=== PATIENT | male | born 1965 | race Caucasian/White ===

== ENCOUNTER 2017-03-05 08:18 | Inpatient (IN) | payer BC, MEDICAID ==
[~2017-03-05] VITALS: Ht 180.3 cm; Wt 65.8 kg
[~2017-03-05 08:18] MED LIST: ALPR-475 PO; AMOX1TAB12 PO; AMOX1TAB64 PO; DEXA4TAB PO; LIDO30CR TP; METR500T PO; MULT-132 PO; OMEP20TA62 PO; ONDA8TAB12 PO; OXYC20TA42 PO; POTA20TA14 PO; PROC10TA PO; ZOLP10TA5 PO; maalox/diphenh/lido/sucralfate PO
[2017-03-05] MEDS ORDERED: PROPOFOL 100 ML IV ONE (08:58)
[2017-03-05] MEDS ORDERED: PROPOFOL 100 ML IV PRN ×2 (09:00→15:21)
[2017-03-05 09:21] LABS: ABG COLLECTION SITE LEFT BRACHIAL; COLLATERAL CIRCULATION TESTING NORMAL
[2017-03-05 09:27] LABS: BLOOD UREA NITROGEN 15 mg/dL (7-18)
[2017-03-05] MEDS ORDERED: PHENYLEPHRINE 10 MG/ML ONE (09:34)
[2017-03-05] MEDS ORDERED: ONDANSETRON 2MG/ML, 2ML ONE (09:34)
[2017-03-05] MEDS ORDERED: DEXAMETHASONE 4 MG/ML, 1ML ONE (09:34)
[2017-03-05] MEDS ORDERED: ROCURONIUM 10 MG/ML ONE (09:34)
[2017-03-05] MEDS ORDERED: METOCLOPRAMIDE 5 MG/ML, 2ML ONE (09:34)
[2017-03-05] MEDS ORDERED: FENTANYL PF 100 MCG/2ML ONE ×2 (09:57→13:10)
[2017-03-05] MEDS ORDERED: MIDAZOLAM 1 MG/ML, 2ML ONE ×2 (09:57→10:51)
[2017-03-05] MEDS ORDERED: BISACODYL 10 MG SUPP PR PRN ×2 (12:30→15:30)
[2017-03-05] MEDS ORDERED: POLYETHYLENE GLYCOL 17 GM PACKET PO PRN (12:30)
[2017-03-05] MEDS ORDERED: DOCUSATE 100 MG CAPSULE PO PRN (12:30)
[2017-03-05] MEDS: SODIUM CHLORIDE 0.9% 1,000 ML IV SCH ×2 (12:57→22:55)
[2017-03-05] MEDS: FENTANYL PF 100 MCG/2ML IVPush PRN (13:35)
[2017-03-05] MEDS: FENTANYL PF 2,500 MCG in SODIUM CHLORIDE 0.9% 200 ML IV PRN (14:54)
[2017-03-05] MEDS: PROPOFOL 100 ML IV PRN ×2 (14:55→19:31)
[2017-03-05] MEDS ORDERED: SODIUM CHLORIDE 0.9% 1,000ML IVBOLUS ONE ×2 (15:30→23:00)
[2017-03-05] MEDS ORDERED: SENNA/DOCUSATE TABLET NG PRN (15:30)
[2017-03-05] MEDS: ALBUTEROL/IPRATROPIUM 2.5MG/0.5MG, 3 ML INLINE SCH ×3 (15:30→23:15)
[2017-03-05] MEDS ORDERED: LACTULOSE 20 GM/30 ML UDC NG PRN (15:30)
[2017-03-05] MEDS ORDERED: SENNOSIDES 8.8 MG/5 ML ORAL SOL NG PRN (15:30)
[2017-03-05] MEDS ORDERED: PHARMACY MAY ADJ FOR RENAL FX MC SCH (15:30)
[2017-03-05] MEDS ORDERED: FENTANYL PF 100 MCG/2ML IVPush PRN (15:30)
[2017-03-05 15:47] VITALS: BP 85/62
[2017-03-05] MEDS: FAMOTIDINE 20 MG/2 ML IV SCH (16:56)
[2017-03-05] MEDS: RISPERIDONE 1 MG TABLET NG PRN (20:06)
[2017-03-05] MEDS: MIDAZOLAM HCL 50 MG in SODIUM CHLORIDE 0.9% 240 ML IV PRN (20:45)
[2017-03-05] MEDS ORDERED: FAMOTIDINE 20 MG/2 ML IVPush SCH (21:00)
[2017-03-06] MEDS: ALBUTEROL/IPRATROPIUM 2.5MG/0.5MG, 3 ML INLINE SCH ×6 (02:11→21:53)
[2017-03-06] MEDS: FAMOTIDINE 20 MG/2 ML IV SCH ×2 (03:59→18:40)
[2017-03-06 04:00] VITALS: BP 85/45
[2017-03-06 04:24] LABS: ABG COLLECTION SITE ARTERIAL LINE
[2017-03-06 04:36] LABS: ASPARTATE AMINO TRANSFERASE 7 U/L (15-37); BLOOD UREA NITROGEN 15 mg/dL (7-18)
[2017-03-06] MEDS: MIDAZOLAM HCL 50 MG in SODIUM CHLORIDE 0.9% 240 ML IV PRN ×2 (07:38→19:13)
[2017-03-06] MEDS: SODIUM CHLORIDE 0.9% 1,000 ML IV SCH ×2 (10:59→19:20)
[2017-03-06] MEDS ORDERED: EPINEPHRINE 1 MG/ML, 1ML ONE (13:53)
[2017-03-06] MEDS ORDERED: LIDOCAINE 0.5%-EPI 1:200K, 50ML ONE (13:53)
[2017-03-06] MEDS ORDERED: LIDOCAINE/PF 1%, 30ML ONE (13:54)
[2017-03-06] MEDS ORDERED: FENTANYL PF 250 MCG/5ML ONE ×2 (14:06→14:46)
[2017-03-06] MEDS ORDERED: MIDAZOLAM 1 MG/ML, 2ML ONE (14:07)
[2017-03-06] MEDS ORDERED: PROPOFOL 10 MG/ML, 20ML ONE (14:15)
[2017-03-06] MEDS ORDERED: ROCURONIUM 10 MG/ML ONE (14:15)
[2017-03-06] MEDS ORDERED: CEFAZOLIN 1,000 MG ONE (14:15)
[2017-03-06] MEDS: FENTANYL PF 2,500 MCG in SODIUM CHLORIDE 0.9% 200 ML IV PRN (17:24)
[2017-03-06] MEDS: ACETAMINOPHEN 325 MG TABLET PO PRN (19:20)
[2017-03-06] MEDS: AMPICILLIN/SULBACTAM 3 GM in SODIUM CHLORIDE 0.9% 100 ML IV SCH (19:20)
[2017-03-06] MEDS: FENTANYL PF 100 MCG/2ML IVPush PRN (19:55)
[2017-03-07] MEDS: AMPICILLIN/SULBACTAM 3 GM in SODIUM CHLORIDE 0.9% 100 ML IV SCH ×4 (01:15→19:07)
[2017-03-07] MEDS: MIDAZOLAM HCL 50 MG in SODIUM CHLORIDE 0.9% 240 ML IV PRN (02:33)
[2017-03-07] MEDS: FENTANYL PF 2,500 MCG in SODIUM CHLORIDE 0.9% 200 ML IV PRN (02:34)
[2017-03-07] MEDS: ALBUTEROL/IPRATROPIUM 2.5MG/0.5MG, 3 ML INLINE SCH ×2 (02:36→06:58)
[2017-03-07 04:00] VITALS: BP 90/45
[2017-03-07 04:26] LABS: ABG COLLECTION SITE NOT DOCUMENTED
[2017-03-07 04:39] LABS: BLOOD UREA NITROGEN 9 mg/dL (7-18)
[2017-03-07] MEDS: FAMOTIDINE 20 MG/2 ML IV SCH ×2 (08:47→19:07)
[2017-03-07] MEDS: D5%-0.9% NACL 1,000 ML IV SCH (08:49)
[2017-03-07] MEDS ORDERED: SODIUM CHLORIDE 0.9% 1,000 ML IV ONE (09:00)
[2017-03-07] MEDS: LIDOCAINE-MPF 1%, 2ML ENDO PRN (13:02)
[2017-03-07] MEDS: RISPERIDONE 1 MG TABLET NG PRN (20:42)
[2017-03-07] MEDS: ACETAMINOPHEN 325 MG TABLET PO PRN (20:43)
[2017-03-08] MEDS: LIDOCAINE-MPF 1%, 2ML ENDO PRN ×4 (00:11→21:24)
[2017-03-08] MEDS: AMPICILLIN/SULBACTAM 3 GM in SODIUM CHLORIDE 0.9% 100 ML IV SCH ×4 (01:04→18:02)
[2017-03-08] MEDS: FENTANYL PF 100 MCG/2ML IVPush PRN ×4 (01:17→23:29)
[2017-03-08] MEDS: D5%-0.9% NACL 1,000 ML IV SCH ×2 (02:00→18:02)
[2017-03-08 04:00] VITALS: BP 89/53
[2017-03-08 04:26] LABS: ABG COLLECTION SITE LEFT RADIAL; COLLATERAL CIRCULATION TESTING NORMAL
[2017-03-08 04:37] LABS: BLOOD UREA NITROGEN 8 mg/dL (7-18)
[2017-03-08] MEDS: FENTANYL PF 2,500 MCG in SODIUM CHLORIDE 0.9% 200 ML IV PRN (04:57)
[2017-03-08] MEDS: FAMOTIDINE 40 MG/5 ML ORAL SUSP PO SCH ×2 (06:18→17:31)
[2017-03-08] MEDS ORDERED: POTASSIUM CHLORIDE 20 MEQ PACKET PO ONE (09:00)
[2017-03-08] MEDS ORDERED: ACETAMINOPHEN 650 MG/20.3 ML UDC PO PRN (12:30)
[2017-03-09] MEDS: RISPERIDONE 1 MG TABLET NG PRN (00:59)
[2017-03-09] MEDS: AMPICILLIN/SULBACTAM 3 GM in SODIUM CHLORIDE 0.9% 100 ML IV SCH ×4 (01:31→21:33)
[2017-03-09] MEDS ORDERED: ONDANSETRON 2MG/ML, 2ML IVPush PRN (02:30)
[2017-03-09] MEDS ORDERED: ONDANSETRON 2MG/ML, 2ML ONE (02:32)
[2017-03-09 04:00] VITALS: BP 114/93
[2017-03-09 04:24] LABS: ASPARTATE AMINO TRANSFERASE 7 U/L (15-37); BLOOD UREA NITROGEN 10 mg/dL (7-18)
[2017-03-09] MEDS: FAMOTIDINE 40 MG/5 ML ORAL SUSP PO SCH ×2 (06:12→19:34)
[2017-03-09] MEDS ORDERED: LIDOCAINE 1%, 20ML ONE (09:24)
[2017-03-09] MEDS ORDERED: MIDAZOLAM 1 MG/ML, 5ML ONE (10:01)
[2017-03-09] MEDS ORDERED: FENTANYL PF 100 MCG/2ML ONE (10:01)
[2017-03-09] MEDS: D5%-0.9% NACL 1,000 ML IV SCH (11:28)
[2017-03-09] MEDS: FENTANYL PF 2,500 MCG in SODIUM CHLORIDE 0.9% 200 ML IV PRN (11:30)
[2017-03-09] MEDS ORDERED: FENTANYL 50 MCG PATCH TD SCH (14:00)
[2017-03-09] MEDS ORDERED: FENTANYL 50 MCG PATCH ONE (16:55)
[2017-03-09 20:57] VITALS: BP 92/59
[2017-03-10] MEDS: D5%-0.9% NACL 1,000 ML IV SCH ×2 (01:00→18:01)
[2017-03-10 01:25] VITALS: BP 99/62
[2017-03-10] MEDS ORDERED: KETOROLAC 30 MG/1 ML ONE (01:43)
[2017-03-10] MEDS: KETOROLAC 30 MG/1 ML IVPush PRN ×4 (01:49→23:52)
[2017-03-10] MEDS: AMPICILLIN/SULBACTAM 3 GM in SODIUM CHLORIDE 0.9% 100 ML IV SCH ×4 (04:15→21:06)
[2017-03-10] MEDS: FAMOTIDINE 40 MG/5 ML ORAL SUSP PO SCH ×2 (06:00→18:02)
[2017-03-10 07:52] VITALS: BP 88/59
[2017-03-10 13:54] VITALS: BP 95/60
[2017-03-10 18:16] VITALS: BP 109/92
[2017-03-10 18:24] VITALS: BP 90/60
[2017-03-10] MEDS ORDERED: MORPHINE SULFATE 4 MG/ML, 1ML IVPush ONE (21:30)
[2017-03-11 02:06] VITALS: BP 88/54
[2017-03-11] MEDS: AMPICILLIN/SULBACTAM 3 GM in SODIUM CHLORIDE 0.9% 100 ML IV SCH ×4 (03:45→21:00)
[2017-03-11 05:01] LABS: BLOOD UREA NITROGEN 14 mg/dL (7-18)
[2017-03-11] MEDS: FAMOTIDINE 40 MG/5 ML ORAL SUSP PO SCH ×2 (06:17→18:11)
[2017-03-11] MEDS: KETOROLAC 30 MG/1 ML IVPush PRN ×2 (06:17→21:00)
[2017-03-11 08:29] VITALS: BP 96/60
[2017-03-11] MEDS: POTASSIUM CHLORIDE 10% 40 MEQ/30 ML UDC PO SCH ×2 (10:48→21:00)
[2017-03-11] MEDS: D5%-0.9% NACL 1,000 ML IV SCH ×2 (10:49→21:50)
[2017-03-11] MEDS: LIDOCAINE-MPF 1%, 2ML ENDO PRN (11:54)
[2017-03-11 13:00] VITALS: BP 96/62
[2017-03-11] MEDS: OXYcodone 5 MG/5 ML ORAL.SOL UDC PO PRN ×3 (13:17→23:42)
[2017-03-11] MEDS ORDERED: FENTANYL 50 MCG PATCH TD SCH (14:00)
[2017-03-11] MEDS ORDERED: FENTANYL REMOVE PATCH NOTE XX SCH (14:00)
[2017-03-11 20:00] VITALS: BP 82/53
[2017-03-12] MEDS: KETOROLAC 30 MG/1 ML IVPush PRN (03:28)
[2017-03-12] MEDS: AMPICILLIN/SULBACTAM 3 GM in SODIUM CHLORIDE 0.9% 100 ML IV SCH (03:30)
[2017-03-12] MEDS ORDERED: SODIUM CHLORIDE 0.9% 1,000ML IVBOLUS ONE ×4 (04:30→05:30)
[2017-03-12 04:36] LABS: BLOOD UREA NITROGEN 14 mg/dL (7-18); FIBRINOGEN 432 mg/dL (200-340)
[2017-03-12] MEDS ORDERED: LORazepam 2 MG/ML, 1ML ONE (04:36)
[2017-03-12] MEDS ORDERED: MIDAZOLAM 1 MG/ML, 5ML ONE ×2 (04:41→04:47)
[2017-03-12] MEDS ORDERED: MIDAZOLAM HCL 25 MG in SODIUM CHLORIDE 0.9% 245 ML IV SCH (04:43)
[2017-03-12] MEDS ORDERED: MORPHINE SULFATE 4 MG/ML, 1ML ONE (04:51)
[2017-03-12] MEDS ORDERED: morphine SULFATE 10 MG/ML, 1ML IVPush PRN (05:00)
[2017-03-12] MEDS ORDERED: LIDOCAINE/PF 1.5%-EPI 1:200K, 30ML ONE (05:02)
[2017-03-12] MEDS ORDERED: PROPOFOL 100 ML IV ONE (05:05)
[2017-03-12] MEDS ORDERED: FENTANYL PF 250 MCG/5ML ONE (05:16)
[2017-03-12] MEDS ORDERED: MIDAZOLAM 1 MG/ML, 2ML ONE (05:16)
[2017-03-12] MEDS ORDERED: ROCURONIUM 10 MG/ML ONE (05:29)
[2017-03-12] MEDS ORDERED: PROPOFOL 10 MG/ML, 20ML ONE (05:29)
[2017-03-12] MEDS ORDERED: PHENYLEPHRINE 10 MG/ML ONE (05:29)
[2017-03-12] MEDS ORDERED: PROPOFOL 10 MG/ML, 50ML ONE (05:29)
[2017-03-12] MEDS ORDERED: MIDAZOLAM 1 MG/ML, 5ML IVPush ONE ×2 (05:30)
[2017-03-12] MEDS ORDERED: PROPOFOL 100 ML IV PRN (05:30)
[2017-03-12] MEDS ORDERED: MORPHINE SULFATE 4 MG/ML, 1ML IVPush ONE (05:30)
[2017-03-12] MEDS: FAMOTIDINE 40 MG/5 ML ORAL SUSP PO SCH (06:00)
[2017-03-12] MEDS ORDERED: POTASSIUM CHLORIDE 10% 40 MEQ/30 ML UDC PO ONE (06:57)
[2017-03-12] MEDS: D5%-0.9% NACL 1,000 ML IV SCH (09:48)
[2017-03-12] MEDS ORDERED: LORazepam 2 MG/ML, 1ML IV ONE (10:00)
[2017-03-12] MEDS ORDERED: morphine SULFATE 10 MG/ML, 1ML IV ONE (10:00)
[2017-03-12] MEDS ORDERED: SODIUM CHLORIDE 0.9% 1,000 ML IV SCH (10:00)
[2017-03-12] MEDS: LORazepam 2 MG/ML, 1ML IV PRN ×2 (11:38→12:05)
[2017-03-12] MEDS: LORazepam 2 MG/ML, 1ML IVPush PRN ×4 (13:38→19:44)
[2017-03-13] MEDS: LORazepam 2 MG/ML, 1ML IVPush PRN ×3 (03:00→12:42)
[2017-03-13] MEDS: ATROPINE OPHTH SOLN 1%, 2ML PO PRN ×2 (20:51→22:38)
[2017-03-14] MEDS: ATROPINE OPHTH SOLN 1%, 2ML PO PRN ×3 (00:16→05:26)
== END 2017-03-14 11:17 | disposition expired | DRG 11 ==
LOC: OR 09:21 → CCU 11:30 → 4WST 03-09 14:56 → CCU 03-12 04:31 → 3NW 03-13 12:51
PROVIDERS: ADMIT Hospitalist; ATTEND Hospitalist
PROC: 0BH17EZ Insertion of Endotracheal Airway into Trachea, Via Natural or Artificial Opening (ICD-10-PCS; 2017-03-05)
PROC: 0W337ZZ Control Bleeding in Oral Cavity and Throat, Via Natural or Artificial Opening (ICD-10-PCS; 2017-03-05)
PROC: 5A1945Z Respiratory Ventilation, 24-96 Consecutive Hours (ICD-10-PCS; principal; 2017-03-05 10:30)
PROC: 0B110F4 Bypass Trachea to Cutaneous with Tracheostomy Device, Open Approach (ICD-10-PCS; 2017-03-06)
PROC: 0DH63UZ Insertion of Feeding Device into Stomach, Percutaneous Approach (ICD-10-PCS; 2017-03-09)
PROC: 30233N1 Transfusion of Nonautologous Red Blood Cells into Peripheral Vein, Percutaneous Approach (ICD-10-PCS; 2017-03-12)
DX: C10.9 Malignant neoplasm of oropharynx, unspecified (principal); E43 Unspecified severe protein-calorie malnutrition; J96.00 Acute respiratory failure, unspecified whether with hypoxia or hypercapnia; J69.0 Pneumonitis due to inhalation of food and vomit; D62 Acute posthemorrhagic anemia; Z99.11 Dependence on respirator [ventilator] status; R13.10 Dysphagia, unspecified; R57.1 Hypovolemic shock; Z51.5 Encounter for palliative care; Z80.0 Family history of malignant neoplasm of digestive organs; Z80.3 Family history of malignant neoplasm of breast; Z85.810 Personal history of malignant neoplasm of tongue; Z85.818 Personal history of malignant neoplasm of other sites of lip, oral cavity, and pharynx; Z86.19 Personal history of other infectious and parasitic diseases; Z87.891 Personal history of nicotine dependence; Z90.89 Acquired absence of other organs; Z68.20 Body mass index [BMI] 20.0-20.9, adult
CPT/HCPCS: 31502; 36415; 36600; 49440; 71010; 74150; 80048; 80053; 82040; 82803; 83735; 84478; 85014; 85018; 85025; 85384; 85610; 85730; 86850; 86900; 86923; 87070; 87081; 87205; 93005; 94002; 94003; 94640; 96365; 99156; 99157; C1725; J0171; J0295; J0690; J1100; J1885; J2250; J2405; J2704; J3010; J3490; J7042; J7060; J7620; C1729; C1769; J2060; J2270; J2370; J2765; J7030; J7050; P9016; S0028